=== PATIENT | female | born 1955 | race Caucasian/White ===

== ENCOUNTER → 2016-07-05 | Outpatient (CLI) | payer BC ==
--- NOTE | 2016-07-05 10:04 | Diagnostic Imaging Report ---
PROCEDURE: US Gallbladder. TECHNIQUE: Multiple real-time grayscale images were obtained over the right upper quadrant in various projections. INDICATION: Nausea and vomiting. Abdominal pain. FINDINGS: The visualized portions of the pancreas appear unremarkable. The liver is fairly homogeneous with no focal lesion. Hepatopetal flow in the portal vein is seen. The gallbladder demonstrates no stones or wall thickening. The sonographic Carrizales's sign is reportedly negative. The right kidney is 11.4 cm in length with no hydronephrosis or focal lesion. The CBD is 4 mm in caliber. No fluid collection in the upper right abdomen is seen. IMPRESSION: Unremarkable exam. Dictated by: Dictated on workstation # [id number]
== END ==
LOC: RAD 08:24
PROVIDERS: ATTEND Nurse Practitioner Family
DX: R10.84 Generalized abdominal pain (principal); R11.10 Vomiting, unspecified
CPT/HCPCS: 76705

== ENCOUNTER → 2016-07-27 | Outpatient (CLI) | payer BC ==
--- NOTE | 2016-07-27 16:29 | Diagnostic Imaging Report ---
PROCEDURE: MRI lumbar spine. TECHNIQUE: Multiplanar, multisequence MRI of the lumbar spine was performed without contrast. INDICATION: Back pain. FINDINGS: There is a transitional lumbosacral junction with prominent transverse processes of L5. There is minimal spondylolisthesis of L4 over L5. The study does not evaluate well for possible pars defects. The vertebral body heights are preserved. There is disc desiccation at lower lumbar spine levels with mild disc height loss at L3/L4 and L4/L5. The cauda equina and conus medullaris appear grossly unremarkable. The marrow signal is fairly homogeneous with no focal lesion seen. The conus terminates at L1 level. T11/T12: There is a mild disc bulge with no significant spinal canal stenosis. No foraminal narrowing. T12/L1: There is minimal disc bulge. No spinal canal or foraminal stenosis. L1/L2: No disc herniation. There is mild facet hypertrophy. No spinal canal or foraminal stenosis. L2/L3: There is a minimal disc bulge and mild facet hypertrophy. No central canal or lateral recess stenosis. No foraminal narrowing. L3/L4: There is a mild disc bulge and moderate facet arthropathy. No central canal stenosis. There is only mild lateral recess stenosis on the right. Left lateral recess is patent. The foramina demonstrate no significant stenosis. L4/L5: There is grade 1 spondylolisthesis. There is moderate to severe facet arthropathy. No central canal stenosis. The lateral recess on the right side demonstrates mild to moderate narrowing and on the left there is mild lateral recess narrowing. The foramina demonstrate mild to moderate narrowing on the right and mild narrowing on the left. L5/S1: There is no disc herniation and no spinal canal stenosis. No foraminal narrowing. IMPRESSION: 1. There is transitional lumbosacral junction with partially sacralized L5 transverse processes seen. 2. Minimal spondylolisthesis of L4 over L5. There are generally mild lower lumbar spine facet and disc degenerative changes. There is mild to moderate right lateral recess stenosis at L4/L5. Other findings as above. Dictated by: Dictated on workstation # [id number]
--- NOTE | 2016-07-27 16:48 | Diagnostic Imaging Report ---
PROCEDURE: MR imaging cervical spine without contrast. TECHNIQUE: Multiplanar, multisequence MR imaging of the cervical spine was performed without contrast. INDICATION: Cervical radiculopathy. FINDINGS: There is straightening of the cervical lordosis. The vertebral body heights are preserved. There is disc desiccation at all levels with mild disc height loss at the C4-C5, C5-C6, and C6-C7 levels. There is a marrow signal abnormality along the superior endplate of C4 probably related to a Schmorl's node. Indeterminate 1 cm T2 hyperintense lesion is seen within T1 vertebral body with minimal T1 hyperintensity suggested, located within the right side of this vertebral body probably related to an atypical hemangioma. There are perineural cysts noted about 8 mm in size seen on the right side involving C7-T1 and T2-T3 neural foramina and on the left side involving the T1-T2 and T2-T3 foramina. Smaller perineural cysts are seen in the right neural foramen along the upper thoracic spine. The sagittal images demonstrate evidence of mild disc herniations in the upper thoracic spine slightly prominent at the T2-T3 level with mild spinal canal stenosis suggested reducing the AP dimension of the canal to 9.6 mm and eccentric to the left. No cord compression is suggested, however. The foramen magnum and upper cervical canal are widely patent. The spinal cord has normal caliber and signal. C2-C3: No disc herniation, no spinal canal or foraminal stenosis. C3-C4: No disc herniation, no spinal canal or foraminal stenosis. C4-C5: There is a disc spur complex associated with mild spinal canal stenosis reducing the AP dimension of the canal to 9.6 mm. No cord compression. The foramina demonstrate moderate stenosis on the left and mild stenosis on the right resulting from uncovertebral and facet hypertrophy more prominent on the left. C5-C6: There is a prominent disc spur complex associated with cwjy-yd-fgvtxwts canal stenosis reducing the AP dimension of the spinal canal to 8.1 mm with minimal impression upon the anterior margin of the spinal cord. There is still CSF seen along the posterior margin of the cord. No cord signal abnormality. The foramina demonstrate bilateral moderate stenosis. C6-C7: There is no significant disc herniation. There is bilateral mild foraminal stenosis. C7-T1: No disc herniation and no spinal canal stenosis seen. IMPRESSION: 1. Disc degenerative changes most prominent in the [id number] cervical spine and in the upper thoracic vertebra. 2. There are multiple prominent perineural cysts in the foramina around the cervicothoracic junction levels as described. 3. There is moderate spinal canal stenosis at the C5-C6 level with minimal impression upon the anterior margin of the spinal cord. No cord signal abnormality. 4. There is foraminal stenosis most prominent on the left side at C4-C5 and bilaterally at the C5-C6 levels. Dictated by: Dictated on workstation # [id number]
== END ==
LOC: RAD 14:29
PROVIDERS: ATTEND Orthopaedic Surgery Orthopaedic Surgery of the Spine
DX: M43.17 Spondylolisthesis, lumbosacral region (principal); M54.5 Low back pain
CPT/HCPCS: 72141; 72148

== ENCOUNTER 2016-10-17 10:30 | Outpatient (RCR) | payer BC | END 2016-10-17 12:16 | disposition home or self-care (01) | PROVIDERS: ATTEND Orthopaedic Surgery Orthopaedic Surgery of the Spine | DX: M48.02 Spinal stenosis, cervical region (principal) ==

== ENCOUNTER → 2018-05-13 | Outpatient (CLI) | payer SELFPAY ==
--- NOTE | 2018-05-13 09:29 | Diagnostic Imaging Report ---
PROCEDURE: US Gallbladder. TECHNIQUE: Multiple real-time grayscale images were obtained over the right upper quadrant in various projections. INDICATION: Epigastric pain. Liver measures 15 cm in length. No discrete liver mass is identified. The portal vein is patent and shows normal direction of flow. Gallbladder is without stones or sludge. No wall thickening or biliary duct dilatation is seen. Pancreas is unremarkable. Right kidney is unremarkable. There is no ascites. IMPRESSION: Unremarkable gallbladder ultrasound. Dictated by: Dictated on workstation # [id number]
== END ==
LOC: RAD 07:32
PROVIDERS: ATTEND Nurse Practitioner Family
DX: K30 Functional dyspepsia (principal)
CPT/HCPCS: 76705

== ENCOUNTER → 2018-05-23 | Outpatient (CLI) | payer SELFPAY ==
[~2018-05-23] MED LIST: CATHETER FLUSH 10 ML SYR IV PRN
--- NOTE | 2018-05-23 19:25 | Diagnostic Imaging Report ---
INDICATION: Epigastric pain. TECHNIQUE: Acquisitions were acquired over the abdomen after the administration of 5.41 mCi of technetium-99m Choletec. Ejection fraction was calculated after the patient consumed an 8 ounce can of Ensure. FINDINGS: There is homogeneous uptake of isotope throughout the liver. There is significant accumulation within the gallbladder by 45 minutes. There is free flow of activity in the small bowel. The ejection fraction is 46%. IMPRESSION: Normal hepatobiliary scan and ejection fraction. Dictated by: Dictated on workstation # [id number]
== END ==
LOC: CARD 11:26
PROVIDERS: ATTEND Internal Medicine
DX: R10.13 Epigastric pain (principal)
CPT/HCPCS: 78227

== ENCOUNTER → 2018-08-01 | Outpatient (CLI) | payer SELFPAY ==
--- NOTE | 2018-08-01 14:40 | Diagnostic Imaging Report ---
PROCEDURE: CT abdomen and pelvis without contrast. TECHNIQUE: Multiple contiguous axial images were obtained through the abdomen and pelvis without the use of intravenous contrast. Auto Exposure Controls were utilized during the CT exam to meet ALARA standards for radiation dose reduction. INDICATION: Elevated liver and pancreatic enzymes, pain. FINDINGS: There is no peripancreatic edema or acute fluid collection. There was no pseudocyst. The gallbladder surgically absent. There was no pathological dilatation of the biliary ducts. The unobstructed urinary tracts appeared unremarkable. The appendix normal. There is no ascites, abscess, hematoma or other fluid collection. No pneumatosis or free gas. No focal inflammatory changes. IMPRESSION: Pancreas and liver appeared unremarkable. No acute fluid collection, ascites, obstructive phenomena or acute abnormalities identified. Dictated by: Dictated on workstation # [id number]
== END ==
LOC: RAD 14:04
PROVIDERS: ATTEND Nurse Practitioner Family
DX: R10.9 Unspecified abdominal pain (principal); R74.8 Abnormal levels of other serum enzymes; Z90.49 Acquired absence of other specified parts of digestive tract
CPT/HCPCS: 74176

== ENCOUNTER 2018-08-12 05:38 | Outpatient (CLI) | payer OTHER ==
[~2018-08-12] VITALS: Ht 162.6 cm; Wt 81.6 kg
[2018-08-12] MEDS ORDERED: PANT40TA2 PO (11:25)
[2018-08-12] MEDS ORDERED: HORMONE REPLACEMENT PO (11:25)
[2018-08-12] MEDS ORDERED: FAMO40TA72 PO (11:25)
== END 2018-08-12 11:32 | disposition home or self-care (01) ==
LOC: PREOP 05:38
PROVIDERS: ATTEND Internal Medicine
DX: Z01.818 Encounter for other preprocedural examination (principal)

== ENCOUNTER 2018-08-16 08:20 | Day surgery (SDC) | payer SELFPAY ==
--- NOTE | 2018-08-08 17:22 | HISTORY AND PHYSICAL ---
DATE OF SERVICE: 08/16/2018 PANENDOSCOPY H AND P The patient is a 62-year-old white female referred for panendoscopy by Dr. Seema Sullivan. She reports about 6-week history of increasing epigastric pain. She had some mild associated nausea, but denied dysphagia. She had noted no evidence or bright red blood per rectum or melena, but stool for occult blood is reportedly positive. She has no known past history of peptic ulcer disease or inflammatory bowel disease. She believes she had a colonoscopy a little over 5 years ago, at which time she was not aware of any abnormalities. It was not done in our institution. She denies waking up with any nocturnal symptoms. Denies sore throat or cough. Workup included a CT scan of the abdomen on the 08/01/2018, that was unremarkable and in May she underwent HIDA scan with CCK that revealed no abnormalities and an ejection fraction of the gallbladder 46%. FAMILY HISTORY: Mother is living at age of 86 with a history of cervical cancer. Father is living at the age of 90, blind secondary to macular degeneration with no known history of GI tract malignancy. PHYSICAL EXAMINATION: GENERAL: Reveals a pleasant overweight white female who did not appear to be in acute distress. HEENT: Unremarkable. Sclerae nonicteric. CHEST: Clear. CARDIOVASCULAR: Reveals regular rate and rhythm without murmur, S3 or S4. NECK: She has a Mallampati class 3 oropharyngeal configuration. ABDOMEN: Soft, supple. Epigastric pain to palpation is noted without rebound or guarding. No mass or organomegaly is noted. Bowel sounds are positive. No bruits are appreciated. ASSESSMENT: For further evaluation of epigastric pain with occult positive blood in the stool. The patient is being set up for panendoscopy on 08/16/2018. Prep instructions with Suprep kit were given and questions were answered. I thank you for the referral of this pleasant lady. Job ID: [id number] DocumentID: [id number] Dictated Date: 08/08/2018 16:58:06 Entry Level Finance Date: 08/08/2018 17:21:43 Dictated By: MARCO CURRIE MD
[~2018-08-16] VITALS: Ht 162.6 cm; Wt 81.6 kg
[~2018-08-16 08:20] MED LIST changes: -CATHETER FLUSH 10 ML SYR IV PRN; +FAMO40TA72 PO; +HORMONE REPLACEMENT PO; +PANT40TA2 PO
[2018-08-16] MEDS ORDERED: D5 LR IV SOLUTION 1,000 ML IV ONE (08:31)
[2018-08-16 08:50] VITALS: BP 138/80
[2018-08-16] MEDS ORDERED: D5 LR IV SOLUTION 1,000 ML IV STA (09:03)
--- NOTE | 2018-08-16 09:10 | Pre-Op Note & Conscious Sedat ---
Pre-Operative Progress Note H&P Reviewed The H&P was reviewed, patient examined and no changes noted. Date H&P Reviewed: Aug 16, 2018 Time H&P Reviewed: 09:10 Conscious Sedation Pre-Proced ASA Score 2 For ASA 3 and 4: Consider anesthesia and medical clearance. Also, for patients with a history of failed moderate sedation consider anesthesia. Airway Lungs Heart ASA score ASA 1: a normal healthy patient ASA 2: a patient with a mild systemic disease (mid diabetes, controlled hypertension, obesity ASA 3: a patient with a severe systemic disease that limits activity (angina, COPD, prior Myocardial infarction) ASA 4: a patient with an incapacitating disease that is a constant threat to life (CHF, renal failure) ASA 5: a moribund patient not expected to survive 24 hrs. (ruptured aneurysm) ASA 6: a declared brain- patient whose organs are being harvested. For emergent operations, add the letter E after the classification Mallampati Classification Grade 3 Sedation Plan Analgesia, Amnesia, Plan communicated to team members, Discussed options with patient/fam, Discussed risks with patient/fam The patient is an appropriate candidate to undergo the planned procedure, sedation, and anesthesia. The patient immediately re-assessed prior to indication. MARCO CURRIE MD Aug 16, 2018 09:10
[2018-08-16] MEDS ORDERED: HURRICAINE EXT TUBE (BENZOCAINE) XX PRN (09:15)
[2018-08-16] MEDS ORDERED: fentaNYL INJECTION 100 MCG/2 ML AMP IVP ONE (09:15)
[2018-08-16] MEDS ORDERED: LIDOCAINE JELLY 2% 6 ML SYRINGE MM PRN (09:15)
[2018-08-16] MEDS ORDERED: MIDAZOLAM 2 MG/2 ML (VERSED) VIAL IVP ONE (09:15)
[2018-08-16] MEDS ORDERED: HURRICAINE EXT TUBE (BENZOCAINE) ONE (09:32)
[2018-08-16] MEDS ORDERED: PROPOFOL INJECTION 50 ML IV ONE (09:45)
[2018-08-16] MEDS ORDERED: MIDAZOLAM 2 MG/2 ML (VERSED) VIAL ONE (09:46)
[2018-08-16 10:45] VITALS: BP 116/71
[2018-08-16] MEDS ORDERED: ONDANSETRON 4 MG/2 ML (SDV) Z0FRAN ONE (10:49)
[2018-08-16] MEDS ORDERED: ONDANSETRON 4 MG/2 ML (SDV) Z0FRAN IVP ONE (11:15)
[2018-08-16 11:40] VITALS: BP 111/72
[2018-08-16 11:44] VITALS: BP 111/72
--- NOTE | 2018-08-16 17:00 | OPERATIVE REPORT ---
DATE OF SERVICE: PANENDOSCOPY SUMMARY INDICATION FOR THE PROCEDURE: Epigastric pain, occult positive blood in the stool. The patient was placed in the left lateral decubitus position. Prior to undergoing colonoscopy, digital rectal evaluation was performed. Anal sphincter tone was normal and the perianal reflex was intact. The was inserted into the rectum under direct visualization and advanced to the cecum. The cecum was identified by identification of the ileocecal valve and cecal strap. Photographic documentation was obtained. Careful inspection was made as the colonoscope was withdrawn. Quality of prep was good. FINDINGS: There was no evidence for internal or external hemorrhoids and the rectum was unremarkable. Mild to moderate number of small to medium size diverticulum were noted with no evidence for diverticulitis. No other sigmoid colonic abnormalities were appreciated. The descending colon, splenic flexure, transverse colon and hepatic flexure were unremarkable. Present in the proximal ascending colon was a diminutive 2 mm sessile hyperplastic polyp. It was biopsied and ablated with a hot forceps. The remainder of the ascending colon and cecum was unremarkable. ASSESSMENT: 1. Mild to moderate diverticular disease confined to the sigmoid colon was present without evidence for diverticulitis. 2. One diminutive polyp that did not have adenomatous features was biopsied and ablated, noted in the proximal ascending colon. No potential colonic bleeding sites were identified, so we did proceed with EGD due to epigastric pain and occult positive blood. The endoscope was inserted into the oral cavity and under direct visualization, the esophagus was intubated. The endoscope was passed down the esophagus through the stomach and second portion of the duodenum. A careful inspection was made as the endoscope was withdrawn. The patient tolerated the procedure well. She did have some post-procedure nausea that required Zofran. Discharged with stable vital signs. The posterior pharynx, arytenoid aperture and true and false vocal folds as well as epiglottis were unremarkable. The proximal, mid and distal esophagus were unremarkable. The Z line was proximally placed at 36 cm secondary to a moderate size hiatal hernia. There was no evidence for erosive esophagitis with an unremarkable appearing gastroesophageal junction. Several small fundal appearing polyps were noted in the fundus of the stomach. The cardia, fundus, antrum of the stomach were unremarkable as was the pylorus, the pyloric channel, the duodenal bulb and second portion of the duodenum with normal appearing villous architecture. ASSESSMENT: Moderate size hiatal hernia is present without evidence for erosive esophagitis. Several small benign fundal polyps were noted with an otherwise unremarkable examination. No potential bleeding sites identified on today's panendoscopy. The patient was reassured by today's findings. I thank you for the referral of this pleasant lady. Job ID: [id number] DocumentID: [id number] Dictated Date: 08/16/2018 11:00:45 Medical Affairs Leader Date: 08/16/2018 16:59:24 Dictated By: MARCO CURRIE MD
== END 2018-08-16 11:45 | disposition home or self-care (01) ==
LOC: ENDO 08:20
PROVIDERS: ATTEND Internal Medicine
DX: K63.5 Polyp of colon (principal); K57.30 Diverticulosis of large intestine without perforation or abscess without bleeding; K44.9 Diaphragmatic hernia without obstruction or gangrene; K31.7 Polyp of stomach and duodenum; K21.9 Gastro-esophageal reflux disease without esophagitis; Z80.49 Family history of malignant neoplasm of other genital organs

== ENCOUNTER → 2019-03-21 | Outpatient (CLI) | payer MEDICARE ==
--- NOTE | 2019-03-25 10:31 | Diagnostic Imaging Report ---
INDICATION: Screening. TECHNIQUE: The current study was also evaluated with a Computer Aided Detection (CAD) system. 3D Tomographic imaging was also performed. COMPARISON: 09/15/2015 and 07/24/2013. FINDINGS: There are scattered fibroglandular densities in the breasts bilaterally. There are benign type calcifications. There is no new dominant mass, spiculated lesion, or suspicious calcification identified. The skin, nipples, and axillae are unremarkable. IMPRESSION: Benign findings. ACR BI-RADS Category 2: Benign findings. Result letter will be mailed to the patient. Note: At least 10% of breast cancer is not imaged by mammography. Dictated by: Dictated on workstation # [id number]
== END ==
LOC: RAD 10:36
PROVIDERS: ATTEND Nurse Practitioner Family
DX: Z12.31 Encounter for screening mammogram for malignant neoplasm of breast (principal)
CPT/HCPCS: 77067

== ENCOUNTER → 2019-09-15 | Outpatient (CLI) | payer MEDICARE ==
--- NOTE | 2019-09-15 12:07 | Diagnostic Imaging Report ---
INDICATION: Left hip pain COMPARISON: None. FINDINGS: 2 views of the left hip were obtained and show no fractures, dislocations, or other acute bony abnormalities. Joint spaces are well maintained throughout. The soft tissues appear unremarkable. No radiopaque foreign bodies are identified. IMPRESSION: Unremarkable radiographic exam of the left hip. Dictated by: Dictated on workstation # [id number]
== END ==
LOC: RAD 11:44
PROVIDERS: ATTEND Nurse Practitioner Family
DX: M25.552 Pain in left hip (principal)
CPT/HCPCS: 73502

== ENCOUNTER → 2019-09-22 | Outpatient (CLI) | payer MEDICARE, OTHER ==
[~2019-09-22] VITALS: Ht 162 cm; Wt 80.0 kg
[~2019-09-22] MED LIST changes: +CATHETER FLUSH 10 ML SYR IV PRN; +REGADENOSON 0.4 MG/5 ML SYR (LEXISCAN) IV ONE
[2019-09-22 08:19] VITALS: BP 143/94
[2019-09-22 08:21] VITALS: BP 152/77
--- NOTE | 2019-09-22 10:51 | STRESS TEST ---
DATE OF SERVICE: 09/22/2019 RESTING AND POST REGADENOSON TECHNETIUM-99M TETROFOSMIN SPECT CT IMAGING ORDERING PHYSICIAN: NEEMA Palacios PRIMARY PHYSICIAN: NEEMA Palacios CLINICAL DIAGNOSIS: Chest pain. Baseline images were carried out after injection of 10.21 mCi of technetium-99m Tetrofosmin. This was followed by 0.4 mg regadenoson and 30.3 mCi of technetium-99m Tetrofosmin for stress imaging. The electrocardiogram showed sinus rhythm at baseline. The electrocardiogram did not change significantly with the regadenoson infusion. The patient tolerated the procedure well. This study was carried out under 's supervision and the electrocardiographic part of the study is reported separately by him. Review of images at rest and following stress does not indicate significant perfusion defects consistent with myocardial ischemia or infarction. Gated images show normal global left ventricular systolic function with normal regional wall motion. Left ventricular ejection fraction is calculated to be 58%. Left ventricular end diastolic volume is 41 mL. TID is absent (1.07). CONCLUSIONS: 1. No evidence of any significant myocardial ischemia or infarction on this study. 2. Normal regional wall motion. 3. Normal global left ventricular systolic function with a calculated ejection fraction 58%. Job ID: [id number] DocumentID: [id number] Dictated Date: 09/22/2019 09:43:48 Distribution Clerk Date: 09/22/2019 10:50:40 Dictated By: MABEL MADDEN MD, MA, FACP, FACC,
== END ==
LOC: CARD 06:41
PROVIDERS: ATTEND Nurse Practitioner Family
DX: R07.89 Other chest pain (principal); R03.0 Elevated blood-pressure reading, without diagnosis of hypertension
CPT/HCPCS: 78452; 93017; A9502

== ENCOUNTER 2019-12-24 09:09 | Outpatient (RCR) | payer MEDICARE, OTHER ==
[~2019-12-24 09:09] MED LIST changes: -CATHETER FLUSH 10 ML SYR IV PRN; -REGADENOSON 0.4 MG/5 ML SYR (LEXISCAN) IV ONE
== END 2020-01-05 | disposition home or self-care (01) ==
PROVIDERS: ATTEND Nurse Practitioner Family
DX: M70.72 Other bursitis of hip, left hip (principal); K21.9 Gastro-esophageal reflux disease without esophagitis; M54.5 Low back pain; M54.2 Cervicalgia; Z91.09 Other allergy status, other than to drugs and biological substances

== ENCOUNTER 2020-02-24 09:52 | Outpatient (RCR) | payer MEDICARE, OTHER | END 2020-02-24 12:00 | disposition home or self-care (01) | PROVIDERS: ATTEND Nurse Practitioner Family | DX: M70.72 Other bursitis of hip, left hip (principal); K21.9 Gastro-esophageal reflux disease without esophagitis; M54.5 Low back pain; M54.2 Cervicalgia; Z91.09 Other allergy status, other than to drugs and biological substances ==

== ENCOUNTER → 2020-08-02 | Outpatient (CLI) | payer MEDICARE, OTHER ==
--- NOTE | 2020-08-02 10:36 | Diagnostic Imaging Report ---
INDICATION: Routine screening. COMPARISON: 03/21/2019 and 09/15/2015. TECHNIQUE: 2D and 3D bilateral screening mammography was performed with CAD. FINDINGS: Both breasts remain heterogeneously dense, limiting the sensitivity of mammography. There are scattered benign calcifications. No mass or malignant appearing microcalcifications are seen. The axillae are unremarkable. IMPRESSION: No mammographic features suspicious for malignancy are identified. ACR BI-RADS Category 2: Benign findings. Result letter will be mailed to the patient. Note: At least 10% of breast cancer is not imaged by mammography. Dictated by: Dictated on workstation # [id number]
== END ==
LOC: RAD 08:00
PROVIDERS: ATTEND Internal Medicine
DX: Z12.31 Encounter for screening mammogram for malignant neoplasm of breast (principal)
CPT/HCPCS: 77063; 77067

== ENCOUNTER → 2021-02-14 | Outpatient (CLI) | payer MEDICARE, OTHER ==
[~2021-02-14] VITALS: Ht 64 cm; Wt 79.1 kg
[~2021-02-14] MED LIST changes: +ACETAMINOPHEN 500 MG TAB (TYLENOL) PO PRN; +EPINEPHrine INJECTION 1 MG/ML AMP IM PRN; +ONDANSETRON 4 MG/2 ML (SDV) Z0FRAN IV PRN; +SOTROVIMAB 500 MG/NS 100 ML IVPB IV ONE; +diphenhydrAMINE 50 MG/ML INJ (BENADRYL) IV PRN
[2021-02-14 12:42] VITALS: BP 150/80
[2021-02-14 13:42] VITALS: BP 146/95
[2021-02-14 13:45] VITALS: BP 146/74
== END ==
LOC: INFUSION 12:37
PROVIDERS: ATTEND Family Medicine
DX: U07.1 COVID-19 (principal)

== ENCOUNTER → 2021-03-07 | Outpatient (CLI) | payer MEDICARE, OTHER ==
[~2021-03-07] MED LIST changes: -ACETAMINOPHEN 500 MG TAB (TYLENOL) PO PRN; -EPINEPHrine INJECTION 1 MG/ML AMP IM PRN; -ONDANSETRON 4 MG/2 ML (SDV) Z0FRAN IV PRN; -SOTROVIMAB 500 MG/NS 100 ML IVPB IV ONE; -diphenhydrAMINE 50 MG/ML INJ (BENADRYL) IV PRN
[2021-03-07 15:52] LABS: BASOPHILS # (AUTO) 0.1 10^3/uL (0.0-0.1); BASOPHILS % (AUTO) 1 % (0-10); EOSINOPHILS # (AUTO) 0.7 10^3/uL (0.0-0.3); EOSINOPHILS % (AUTO) 7 % (0-10); HEMATOCRIT 42 % (35-52); HEMOGLOBIN 13.9 g/dL (11.5-16.0); LYMPHOCYTES # (AUTO) 2.1 10^3/uL (1.0-4.0); LYMPHOCYTES % (AUTO) 22 % (12-44); MEAN CORPUSCULAR HEMOGLOBIN 31 pg (25-34); MEAN CORPUSCULAR HGB CONC 33 g/dL (32-36); MEAN CORPUSCULAR VOLUME 94 fL (80-99); MEAN PLATELET VOLUME 9.7 fL (9.0-12.2); MONOCYTES # (AUTO) 0.6 10^3/uL (0.0-1.0); MONOCYTES % (AUTO) 6 % (0-12); NEUTROPHILS # (AUTO) 6.4 10^3/uL (1.8-7.8); NEUTROPHILS % (AUTO) 65 % (42-75); PLATELET COUNT 369 10^3/uL (130-400); WHITE BLOOD COUNT 9.9 10^3/uL (4.3-11.0)
--- NOTE | 2021-03-07 20:56 | Diagnostic Imaging Report ---
INDICATION: Respiratory infection. COVID. FINDINGS: There is no focal infiltrate apparent. The lungs are clear. No failure, effusion or pneumothorax. No free air beneath the diaphragms. IMPRESSION: Unremarkable 2 view chest. Dictated by: Dictated on workstation # [id number]
== END ==
LOC: RAD 15:29
PROVIDERS: ATTEND Nurse Practitioner Family
DX: U07.1 COVID-19 (principal)
CPT/HCPCS: 36415; 71046; 85025; 85379

== ENCOUNTER 2021-06-09 12:52 | Outpatient (RCR) | payer MEDICARE, OTHER | END 2021-06-11 | PROVIDERS: ATTEND Nurse Practitioner Family | DX: M99.03 Segmental and somatic dysfunction of lumbar region (principal); M99.04 Segmental and somatic dysfunction of sacral region; K21.9 Gastro-esophageal reflux disease without esophagitis ==

== ENCOUNTER 2021-07-06 14:54 | Outpatient (RCR) | payer MEDICARE, OTHER | END 2021-07-12 | disposition home or self-care (01) | PROVIDERS: ATTEND Nurse Practitioner Family | DX: M54.50 Low back pain, unspecified (principal); Z98.890 Other specified postprocedural states ==

== ENCOUNTER 2021-08-08 10:20 | Outpatient (RCR) | payer MEDICARE, OTHER | END 2021-08-11 | disposition home or self-care (01) | PROVIDERS: ATTEND Nurse Practitioner Family | DX: M54.50 Low back pain, unspecified (principal); Z98.890 Other specified postprocedural states ==

== ENCOUNTER → 2022-01-11 | Outpatient (CLI) | payer MEDICARE, OTHER ==
--- NOTE | 2022-01-12 09:07 | Diagnostic Imaging Report ---
Indication: Routine screening. Comparison is made with prior mammograms from 08/02/2020 and 03/21/2019. 2-D and 3-D bilateral screening mammography was performed with CAD. Both breasts are heterogeneously dense, limiting the sensitivity of mammography. There are scattered benign calcifications in both breasts. No spiculated mass or malignant-appearing microcalcifications are seen. Axillae are unremarkable. IMPRESSION: BI-RADS Category 2 No mammographic features suspicious for malignancy are identified. ACR BI-RADS Category 2: Benign findings. Result letter will be mailed to the patient. Note: At least 10% of breast cancer is not imaged by mammography. Dictated by: Dictated on workstation # [id number]
== END ==
LOC: RAD 15:23
PROVIDERS: ATTEND Nurse Practitioner Family
DX: Z12.31 Encounter for screening mammogram for malignant neoplasm of breast (principal)
CPT/HCPCS: 77063; 77067

== ENCOUNTER 2022-02-10 08:00 | Outpatient (RCR) | payer MEDICARE, OTHER | END 2022-02-11 | disposition home or self-care (01) | PROVIDERS: ATTEND Anesthesiology Pain Medicine | DX: M54.2 Cervicalgia (principal); M62.838 Other muscle spasm ==

== ENCOUNTER 2022-02-28 13:36 | Outpatient (RCR) | payer MEDICARE, OTHER | END 2022-03-14 | disposition home or self-care (01) | PROVIDERS: ATTEND Anesthesiology Pain Medicine | DX: M54.2 Cervicalgia (principal); M62.838 Other muscle spasm ==

== ENCOUNTER 2023-01-10 03:38 | Observation (INO) | payer MEDICARE, OTHER ==
[~2023-01-10] VITALS: Ht 162.6 cm; Wt 79.7 kg
--- NOTE | 2023-01-10 03:52 | ED Cardiac General ---
History of Present Illness General Stated Complaint: VOMITING/RAPID HEART RATE Source: patient Exam Limitations: no limitations History of Present Illness Date Seen by Provider: Jan 10, 2023 Time Seen by Provider: 03:52 Initial Comments Patient is a 67-year-old female who presents to the emergency room with a chief complaint of sudden onset racing heart, nauseated dry heaving. She woke up in the middle of the night after having terrible dreams, nauseated and feeling po jigar, turned over in the bed on her left side and all of a sudden felt the pounding in her heart. She had 1 episode of known A-fib around a surgery in 2014 while she was in recovery. By the time she came out of recovery the A-fib had resolved. She takes no medications for high blood pressure or heart problems. She tried a new sleep aid last night prior to bed but other than that does not use excessive amounts of caffeine, has not been on any cold medications/decongestants. She denies recent fevers, chills, cough. No diarrhea, black or bloody stools or urinary discomfort. No abnormal swelling in her legs. She is not on blood thinners. Currently states her nausea is improved. She never had chest pain. She does not feel short of breath. Timing/Duration: 1 hour Severity: moderate Activities at Onset: sleep NTG SL WEIGHT AND TEST BAR CLERK: No ASA po WEIGHT AND TEST BAR CLERK: No Associated Systoms: Nausea/Vomiting, Other (Palpitations) Allergies and Home Medications Allergies Coded Allergies: No Known Drug Allergies (Unverified , 08/12/18) Patient Home Medication List Home Medication List Reviewed: Yes Famotidine (Pepcid) 40 Mg Tablet, 40 MG PO HS, (Reported) Entered as Reported by: DAVID GARNICA on 08/12/181124 Pantoprazole Sodium (Protonix) 40 Mg Tablet.dr, 40 MG PO DAILY, (Reported) Entered as Reported by: DAVID GARNICA on 08/12/18 112 [Hormone Replacement] , 1 LOZENGE PO DAILY, (Reported) Entered as Reported by: DAVID GARNICA on 08/12/18 112 Review of Systems Review of Systems Constitutional: see HPI, malaise EENTM: No Symptoms Reported Respiratory: No Symptoms Reported Cardiovascular: Irregular Heart Rate, Palpitations Gastrointestinal: Nausea, Vomiting Genitourinary: No Symptoms Reported Musculoskeletal: no symptoms reported Skin: no symptoms reported Past Jdqrbxc-Gqfggd-Wljvof Hx Seasonal Allergies Seasonal Allergies: Yes Past Medical History Surgeries: Yes (LEG FX X2) Gallbladder, Hysterectomy Respiratory: No Cardiac: No Neurological: No 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 0.0oz. 81.585503ps; 30.48 BMI Method: General Appearance: No Apparent Distress, WD/WN HEENT: PERRL/EOMI, Other (Very dry oral mucosa) Respiratory: Lungs Clear, Normal Breath Sounds, No Accessory Muscle Use, No Respiratory Distress Cardiovascular: Normal Peripheral Pulses, Irregularly Irregular, Tachycardia Gastrointestinal: Non Tender, Soft Extremity: No Pedal Edema Neurologic/Psychiatric: Alert, Oriented x3, No Motor/Sensory Deficits, Normal Mood/Affect Skin: Normal Color, Warm/Dry Progress/Results/Core Measures Results/Orders Lab Results Laboratory Tests Test 01/10/23 04:00 Range/Units White Blood Count 15.6 H 4.3-11.0 10^3/uL Red Blood Count 4.82 3.80-5.11 10^6/uL Hemoglobin 15.5 11.5-16.0 g/dL Hematocrit 45 35-52 % Mean Corpuscular Volume 93 80-99 fL Mean Corpuscular Hemoglobin 32 25-34 pg Mean Corpuscular Hemoglobin Concent 35 32-36 g/dL Red Cell Distribution Width 11.8 10.0-14.5 % Platelet Count 338 130-400 10^3/uL Mean Platelet Volume 10.1 9.0-12.2 fL Immature Granulocyte % (Auto) 0 % Neutrophils (%) (Auto) 86 H 42-75 % Lymphocytes (%) (Auto) 7 L 12-44 % Monocytes (%) (Auto) 5 0-12 % Eosinophils (%) (Auto) 2 0-10 % Basophils (%) (Auto) 0 0-10 % Neutrophils # (Auto) 13.3 H 1.8-7.8 10^3/uL Lymphocytes # (Auto) 1.1 1.0-4.0 10^3/uL Monocytes # (Auto) 0.8 0.0-1.0 10^3/uL Eosinophils # (Auto) 0.3 0.0-0.3 10^3/uL Basophils # (Auto) 0.1 0.0-0.1 10^3/uL Immature Granulocyte # (Auto) 0.1 0.0-0.1 10^3/uL Neutrophils % (Manual) 83 % Lymphocytes % (Manual) 10 % Monocytes % (Manual) 7 % Blood Morphology Comment NORMAL Sodium Level 141 135-145 MMOL/L Potassium Level 3.7 3.6-5.0 MMOL/L Chloride Level 109 H 98-107 MMOL/L Carbon Dioxide Level 20 L 21-32 MMOL/L Anion Gap 12 5-14 MMOL/L Blood Urea Nitrogen 14 7-18 MG/DL Creatinine 0.72 0.60-1.30 MG/DL Estimat Glomerular Filtration Rate 90 BUN/Creatinine Ratio 19 Glucose Level 121 H 70-105 MG/DL Calcium Level 9.1 8.5-10.1 MG/DL My Orders Orders - FERDINAND GARCIA MD Ekg Tracing (01/10/23 03:44) Ed Iv/Invasive Line Start (01/10/23 03:58) Cbc And Automated Diff (01/10/23 03:58) Basic Metabolic Panel (01/10/23 03:58) Chest 1 View, Ap/Pa Only (01/10/23 03:58) Ns Iv 1000 Ml (Ns Iv 1000 Ml) (01/10/23 04:00) Diltiazem Injection (Diltiazem Injection (01/10/23 04:00) Manual Differential (01/10/23 04:00) Diltiazem Drip Pre-Mix (Diltiazem Drip P (01/10/23 04:30) Apixaban Tablet (Apixaban Tablet) (01/10/23 04:30) Digoxin Tablet (Digoxin Tablet) (01/10/23 05:00) Ekg Tracing (01/10/23 05:37) Bnp Bettina (01/10/23 05:39) Medications Given in ED Current Medications Medications Dose Ordered Sig/Robinson Route Start Time Stop Time Status Last Admin Dose Admin Apixaban 5 mg ONCE ONCE PO 01/10/23 04:30 01/10/23 04:31 DC 01/10/23 04:31 5 MG Diltiazem HCl 20 mg ONCE ONCE IVP 01/10/23 04:00 01/10/23 04:01 DC 01/10/23 04:03 20 MG Vital Signs/I&O 01/10/23 01/10/23 01/10/23 01/10/23 03:45 04:03 04:32 05:34 Temp 36.8 36.4 Pulse 147 154 126 97 Resp 15 15 B/P (MAP) 143/113 (123) 123/109 104/90 111/75 Pulse Ox 94 94 O2 Delivery Room Air Room Air Progress Progress Note #1: Time: 04:25 Progress Note HR down after Cardizem bolus - from 160's to 110-124. BP 99/67; IVF running. Wi ll go ahead and start drip at 5mg/hr and administer 5mg Eliquis PO. Progress Note #2: Time: 05:37 Progress Note Patient seen and evaluated by me. Evaluation today includes history and physical exam with CBC, basic metabolic panel, EKG, single view chest x-ray. Pertinent physical exam findings well-developed well-nourished 67-year-old female currently in atrial fibrillation with rapid ventricular response in the 150s. Blood pressure in the 120s to 130s systolic. Oral mucosa is very dry. Heart irregularly irregular, tachycardic. 2+ radial pulses bilaterally lungs are clear, abdomen is soft, nontender. No focal neurologic deficits. No lower extremity edema. Differential diagnosis includes new onset A-fib Labs independently reviewed and interpreted by me. Her CBC is normal, basic metabolic panel is normal, EKG shows A-fib with RVR at 160. Single view chest x-ray shows mild cardiomegaly with positive fluid balance/increased interstitial fluid. Patient is treated with a liter of IV fluids, Cardizem bolus of 20 mg IV followed by a drip at 5 mg an hour. Patient was noted to drop her blood pressure after the bolus to the upper 80s systolic. She responded nicely to fluids and her pressure came back up to the low 100s. She remained tachycardic in the 120s to 130s. 0.5mg of oral digoxin was given. I also administered 5 mg of Eliquis p.o. Just as I was calling Dr. Briones at about 0525 for admission she cardioverted to a normal sinus rhythm in the upper 90s, currently 96 beats a minute and apparent normal sinus rhythm. Blood pressure 112/79. Oxygen saturations 91% on room air. BNP is ordered at this time. Secondary to this episode of prolonged A-fib we will go ahead and keep the bed for evaluation by Dr. Singh. Bridge orders have been written, I spoke with Dr. Briones at 05 25. Patient is agreeable with the plan of care. second EKG at 0541 - NSR at 99bpm Initial ECG Impression Date: Jan 10, 2023 Initial ECG Impression Time: 03:50 Initial ECG Rate: 160 Initial ECG Rhythm: A Fib/Flutter Initial ECG Impression: Nonspecific Changes, Atrial Fibrillation w/RVR EKG : EKG Time: 05:41 Rate: 99 Rhythm: Normal Sinus Intervals WA 164 QRS 90 QTc 407 ECG Comparisson: Changed ECG Impression: Normal Diagnostic Imaging Diagonstic Imaging: Xray Plain Films/CT/US/NM/MRI: chest Comments Single view chest x-ray independently reviewed and interpreted by me, borderline cardiomegaly, positive fluid balance, no consolidative infiltrate or effusion is noted Critical Care Note Critical Care Start Time: 03:52 Stop Time: 05:00 Total Time (minutes) 30min critical care time in the eval and management of Afib with RVR. Time includes rate management with Cardizem bolus and drip and dig administration; review and interpretation of labs/ekg and CXR; discussion with family and admitting provider. Departure Communication (Admissions) Time/Spoke to Admitting Phy: 05:[address] Briones - will admit to ICU, cardizem drip Impression Primary Impression: Atrial fibrillation with rapid ventricular response Disposition: ADMITTED INPATIENT Condition: Critical Admissions Decision to Admit Reason: Admit from ER (General) Decision to Admit/Date: Jan 10, 2023 Time/Decision to Admit Time: 04:58 Departure-Patient Inst. Referrals: LIAM ONTIVEROS DO (PCP/Family) Primary Care Physician Copy Copies To 1: LIAM ONTIVEROS DO Copies To 2: DAVID SINGH MD, KATHRYN M MD Jan 10, 2023 03:52
[2023-01-10] MEDS ORDERED: dilTIAZem INJ 25 MG/5 ML VIAL IVP ONE (04:00)
[2023-01-10] MEDS ORDERED: NS IV 1000 ML 1,000 ML IV SCH ×2 (04:00→06:15)
[2023-01-10 04:11] LABS: BASOPHILS # (AUTO) 0.1 10^3/uL (0.0-0.1); BASOPHILS % (AUTO) 0 % (0-10); EOSINOPHILS # (AUTO) 0.3 10^3/uL (0.0-0.3); EOSINOPHILS % (AUTO) 2 % (0-10); HEMATOCRIT 45 % (35-52); HEMOGLOBIN 15.5 g/dL (11.5-16.0); LYMPHOCYTES # (AUTO) 1.1 10^3/uL (1.0-4.0); LYMPHOCYTES % (AUTO) 7 % (12-44); MEAN CORPUSCULAR HEMOGLOBIN 32 pg (25-34); MEAN CORPUSCULAR HGB CONC 35 g/dL (32-36); MEAN CORPUSCULAR VOLUME 93 fL (80-99); MEAN PLATELET VOLUME 10.1 fL (9.0-12.2); MONOCYTES # (AUTO) 0.8 10^3/uL (0.0-1.0); MONOCYTES % (AUTO) 5 % (0-12); NEUTROPHILS # (AUTO) 13.3 10^3/uL (1.8-7.8); NEUTROPHILS % (AUTO) 86 % (42-75); PLATELET COUNT 338 10^3/uL (130-400); WHITE BLOOD COUNT 15.6 10^3/uL (4.3-11.0)
[2023-01-10 04:25] LABS: CALCIUM 9.1 MG/DL (8.5-10.1); CREATININE SERUM 0.72 MG/DL (0.60-1.30); POTASSIUM 3.7 MMOL/L (3.6-5.0)
[2023-01-10] MEDS ORDERED: APIXABAN 5 MG TABLET PO ONE (04:30)
[2023-01-10] MEDS ORDERED: dilTIAZem DRIP PRE-MIX 125 ML IV SCH (04:30)
[2023-01-10 04:37] LABS: LYMPHOCYTES % (MANUAL) 10 %; MONOCYTES % (MANUAL) 7 %; NEUTROPHILS % (MANUAL) 83 %
[2023-01-10 04:38] LABS: RBC MORPH NORMAL
[2023-01-10] MEDS ORDERED: DIGOXIN 0.25 MG TABLET PO SCH (05:00)
[2023-01-10 05:52] VITALS: BP 103/88
[2023-01-10] MEDS ORDERED: ONDANSETRON INJECTION 4 MG/2 ML (SDV) IV PRN (06:15)
[2023-01-10] MEDS ORDERED: dilTIAZem DRIP 125 MG/125 ML DRIP IV SCH (06:15)
--- NOTE | 2023-01-10 06:17 | Tele-ICU Consult ---
History of Present Illness History of Present Illness Date Seen by Provider: Jan 10, 2023 Time Seen by Provider: 06:12 History of Present Illness eICU Critical Care Consult 67 yo F admitted with cc of palpitations, nausea. Hx of previous a fib 2014, on no meds, no OAC, no CP IN ED was in a fib with rate 147 with BP 147/113, also Hb 15, WBC 15, plt 338, renal function ok, HCO3 21, started on Eliquis 5 mg and IV Cardizem, V rate went down to 110, BP 99/67 CXR boderline CM, congestion Allergies and Home Medications Allergies Coded Allergies: No Known Drug Allergies (Unverified , 08/12/18) Home Medications Famotidine 40 Mg Tablet, 40 MG PO HS, (Reported) Pantoprazole Sodium 40 Mg Tablet.dr, 40 MG PO DAILY, (Reported) [Hormone Replacement] , 1 LOZENGE PO DAILY, (Reported) Past Medical/Social/Family Hx Patient Social History Tobacco Use?: No Substance use?: No Alcohol Use?: No Pt stated abuse/neglect: No Immunizations Up To Date Influenza Vaccine Up-to-Date: No; Not Current First/Initial COVID19 Vaccinat: COVID VAC X2 Tetanus Booster (TDap): Unknown Current Status status: No Advance Directives: No Communicates: Verbally Primary Language: Slovenian Preferred Spoken Language: Slovenian Is interpretation needed?: No Implanted or Applied Medical D: Orthopedic hardware Review of Systems Constitutional: no symptoms reported, see HPI Focused Exam Height, Weight, BMI Height: 5'4.00" Weight: 180lbs. 0.0oz. 81.681992ql; 30.00 BMI Method: Exam Exam Patient acknowledged, consented, and participated in this virtual visit which was conducted using real time audio/video Vital Signs Date Time Temp Pulse Resp B/P (MAP) Pulse Ox O2 Delivery O2 Flow Rate FiO2 01/10/23 05:34 36.4 97 15 111/75 94 Room Air 01/10/23 04:32 126 104/90 01/10/23 04:03 154 123/109 01/10/23 03:45 36.8 147 15 143/113 (123) 94 Room Air I & O 01/10/23 07:00 Intake Total 1000 ml Balance 1000 ml Height & Weight Height: 5'4.00" Weight: 180lbs. 0.0oz. 81.986439ka; 30.00 BMI Method: General Appearance: No Apparent Distress, WD/WN HEENT: PERRL/EOMI, Other (Very dry oral mucosa) Respiratory: Lungs Clear, Normal Breath Sounds, No Accessory Muscle Use, No Respiratory Distress Cardiovascular: Regular Rate, Rhythm (Has converted to sinus, now rate 92), Normal Peripheral Pulses, Irregularly Irregular, Tachycardia Capillary Refill: Less Than 3 Seconds Gastrointestinal: normal bowel sounds, non tender, soft Extremity: No Pedal Edema Neurologic/Psychiatric: Alert, Oriented x3, No Motor/Sensory Deficits, Normal Mood/Affect Skin: Normal Color, Warm/Dry Results Lab Laboratory Tests 01/10/23 04:00 Assessment/Plan Assessment/Plan Was in a fib with RVR, now in sinus, will continue IV Cardizem, cardiology to see spoke with service provider: Critically Ill Patient Time spent with patient (mins): 20 ANGIE GONZALEZ MD Jan 10, 2023 06:17
--- NOTE | 2023-01-10 06:24 | Diagnostic Imaging Report ---
EXAMINATION: Chest 1 view HISTORY: Nausea. Chest palpitations. COMPARISON: 03/07/2021. FINDINGS: The lung volumes are normal. No focal consolidation is seen. No large pleural effusion or pneumothorax is seen. The cardiac silhouette is stable. There is mild prominence of the central pulmonary vasculature. No acute osseous abnormality is seen. IMPRESSION: 1. Mild congestion. Dictated by: Dictated on workstation # [id number]
[2023-01-10] MEDS ORDERED: FLU HIGH DOSE (65+ YOA) 240 MCG/0.7 ML 2023-24 (FLUZONE) IM ONE (07:15)
[2023-01-10] MEDS ORDERED: NS IV 500 ML 500 ML IV PRN (08:15)
[2023-01-10] MEDS ORDERED: POTASSIUM CHLORIDE 20 MEQ TABLET PO ONE (08:15)
[2023-01-10] MEDS ORDERED: RIVA20TA PO (08:57)
--- NOTE | 2023-01-10 08:57 | Consultation-Cardiology ---
HPI-Cardiology Cardiology Consultation Date of Consultation 01/10/23 Date of Admission Time Seen by Provider: 08:54 Indication: Atrial fibrillation HPI 67-year-old lady with history of paroxysmal atrial fibrillation had an episode of atrial fibrillation in 2014 and has been doing well. Woke up last night with dry heaves then she felt palpitation, she checked her Apple Watch and noted to be in atrial fibrillation with a heart rate 150. Patient came into the emergency room and she was started on Cardizem drip. She has converted to sinus rhythm. Denied any chest pain, no shortness of breath no palpitation. No syncope or near syncopal episode. No fever or chills. Home Medications & Allergies Allergies: Coded Allergies: latex (Verified Allergy, Mild, RASH,BLISTERS, 01/10/23) Home Medication List Reviewed: Yes DQH-[id number]-Yfiyxg Hx Patient Social History Marital Status: Employed/Student: employed 2nd Hand Smoke Exposure: No Recent Hopitalizations: No Alcohol Use?: No Past Medical History Discussed below Family Medical History Significant Family History: No Pertinent Family Hx Review of Systems-General Review of Systems Constitutional: no symptoms reported, see HPI EENTM: see HPI, no symptoms reported Respiratory: no symptoms reported, see HPI Cardiovascular: see HPI; No chest pain, No edema, No Hx of Intervention; palpitations; No syncope, No vascular heart diseas, No other Gastrointestinal: no symptoms reported, see HPI Genitourinary: no symptoms reported, see HPI Musculoskeletal: no symptoms reported Skin: no symptoms reported Psychiatric/Neurological: No Symptoms Reported, See HPI Reviewed Test Results Reviewed Test Results Lab Laboratory Tests Test 01/10/23 04:00 Range/Units White Blood Count 15.6 H 4.3-11.0 10^3/uL Red Blood Count 4.82 3.80-5.11 10^6/uL Hemoglobin 15.5 11.5-16.0 g/dL Hematocrit 45 35-52 % Mean Corpuscular Volume 93 80-99 fL Mean Corpuscular Hemoglobin 32 25-34 pg Mean Corpuscular Hemoglobin Concent 35 32-36 g/dL Red Cell Distribution Width 11.8 10.0-14.5 % Platelet Count 338 130-400 10^3/uL Mean Platelet Volume 10.1 9.0-12.2 fL Immature Granulocyte % (Auto) 0 % Neutrophils (%) (Auto) 86 H 42-75 % Lymphocytes (%) (Auto) 7 L 12-44 % Monocytes (%) (Auto) 5 0-12 % Eosinophils (%) (Auto) 2 0-10 % Basophils (%) (Auto) 0 0-10 % Neutrophils # (Auto) 13.3 H 1.8-7.8 10^3/uL Lymphocytes # (Auto) 1.1 1.0-4.0 10^3/uL Monocytes # (Auto) 0.8 0.0-1.0 10^3/uL Eosinophils # (Auto) 0.3 0.0-0.3 10^3/uL Basophils # (Auto) 0.1 0.0-0.1 10^3/uL Immature Granulocyte # (Auto) 0.1 0.0-0.1 10^3/uL Neutrophils % (Manual) 83 % Lymphocytes % (Manual) 10 % Monocytes % (Manual) 7 % Blood Morphology Comment NORMAL Sodium Level 141 135-145 MMOL/L Potassium Level 3.7 3.6-5.0 MMOL/L Chloride Level 109 H 98-107 MMOL/L Carbon Dioxide Level 20 L 21-32 MMOL/L Anion Gap 12 5-14 MMOL/L Blood Urea Nitrogen 14 7-18 MG/DL Creatinine 0.72 0.60-1.30 MG/DL Estimat Glomerular Filtration Rate 90 BUN/Creatinine Ratio 19 Glucose Level 121 H 70-105 MG/DL Calcium Level 9.1 8.5-10.1 MG/DL B-Type Natriuretic Peptide 29.8 <100.0 PG/ML Physical Exam Physical Exam Vital Signs Vital Signs - First Documented 01/10/23 03:45 Temp 36.8 Pulse 147 Resp 15 B/P (MAP) 143/113 (123) Pulse Ox 94 O2 Delivery Room Air Capillary Refill : Less Than 3 Seconds Height, Weight, BMI Height: 5'4.00" Weight: 180lbs. 0.0oz. 81.651965ps; 30.14 BMI Method: General Appearance: No Apparent Distress, WD/WN Eyes: Bilateral Eye Normal Inspection, Bilateral Eye PERRL, Bilateral Eye EOMI HEENT: PERRL/EOMI, Other (Very dry oral mucosa) Neck: Full Range of Motion, Normal Inspection, Non Tender, Supple, Carotid Bruit Respiratory: Lungs Clear, Normal Breath Sounds, No Accessory Muscle Use, No Respiratory Distress Cardiovascular: Regular Rate, Rhythm (Has converted to sinus, now rate 92), Normal Peripheral Pulses, Irregularly Irregular, Tachycardia Gastrointestinal: Non Tender, Soft Back: Normal Inspection, No CVA Tenderness, No Vertebral Tenderness Extremity: No Pedal Edema Neurologic/Psychiatric: Alert, Oriented x3, No Motor/Sensory Deficits, Normal Mood/Affect Skin: Normal Color, Warm/Dry Lymphatic: No Adenopathy A/P-Cardiology Admission Diagnosis Paroxysmal atrial fibrillation Palpitation Arthritis Obesity Assessment/Plan Paroxysmal atrial fibrillation with rapid ventricular response Converted to sinus rhythm on Cardizem drip I had a long discussion with the patient and explained atrial fibrillation, she has her second episode, had a known episode in 2015. I will add low-dose beta-raymond and evaluate tolerance and response We will consider stress test as an outpatient, I will evaluate 2D echo prior to her discharge [id number] score 3, starting Xarelto, monitor tolerance and response Arthritis. Using tramadol on and off, educated on limiting the use of tramadol as much as possible Family history of heart disease with father had carotid endarterectomy mother had mitral valve repair both lived to their 90s Palpitation, probably secondary to atrial fibrillation, resolved BMI 30, increased risk of sleep apnea, discussed weight loss. Clinical Quality Measures AMI/AHF: ASA po Prior to arrival: DAVID Pierre MD Jan 10, 2023 08:57
--- NOTE | 2023-01-10 08:58 | Discharge Inst-Simple/Standard ---
Discharge Inst-Standard Discharge Medications New, Converted or Re-Newed RX: Transmitted to Pharmacy Patient Instructions/Follow Up Plan of Care/Instructions/FU: Please continue to take your medications as written. Please follow up with your primary care doctor to follow up this hospital stay. Activity as Tolerated: Yes Discharge Diet: Cardiac Diet Return to The Hospital For: Chest pain, palpitations, shortness of breath, fever, weakness, if you feel you are getting worse. EMANI DOHERTY MD Jan 10, 2023 08:58
[2023-01-10] MEDS ORDERED: APIXABAN 5 MG TABLET PO SCH ×2 (09:00)
--- NOTE | 2023-01-10 09:03 | Short Stay Summary-Hospitalist ---
History of Present Illness HPI/Chief Complaint Patient is 67-year-old female with past medical history of paroxysmal atrial fibrillation during surgery who presented to the emergency department due to heart pounding. She reports that she woke from sleep after having a nightmare and her heart was pounding. At first she thought it was due to the nightmare but this continued so she put her Apple Watch on and her Apple Watch told her that she was in atrial fibrillation with rapid ventricular rate rates into the 60s. She decided to seek evaluation in the emergency department. In the emergency room EKG was obtained which confirmed she is in atrial fibrillation with rapid ventricular rate and was started on a Cardizem drip. She actually converted to sinus rhythm in the emergency department. Was admitted to the ICU for further management and evaluation. She reports feeling much better this morning. Her only concern for me is about her blood thinners because her mom is on Eliquis and she notes that it is quite expensive. Source: patient Date Seen 01/10/23 Time Seen by a Provider: 09:01 Attending Physician Glynn Sullivan DO PCP Admitting Physician: Himanshu Briones MD Attending Physician: Himanshu Briones MD Referring Physician Date of Admission Jan 10, 2023 at 05:52 Home Medications & Allergies Home Medications Reviewed patient Home Medication Reconciliation performed by pharmacy medication reconciliations transport tank technician and/or nursing. Patients Allergies have been reviewed. Allergies Allergies Coded Allergies latex (Verified Allergy, Mild, RASH,BLISTERS, 01/10/23) Past Wqprxpt-Iihqvm-Sozjlp Hx Patient Social History Marrital Status: Employed/Student: employed Tobacco Use?: No Use of E-Cig and/or Vaping dev: No Substance use?: No Alcohol Use?: No Pt feels they are or have been: No Immunizations Up To Date First/Initial COVID19 Vaccinat: COVID VAC X2 Tetanus Booster (TDap): Unknown Seasonal Allergies Seasonal Allergies: Yes Current Status status: No status: No Advance Directives: Yes Advance Directive Location: Home Communicates: Verbally Primary Language: Cook Islander Preferred Spoken Language: Cook Islander Is interpretation needed?: No Sensory deficits: Vision impairment Implanted or Applied Medical D: Orthopedic hardware Past Medical History Surgeries: Gallbladder, Hysterectomy [employer] History: Hysterectomy Sexually Transmitted Disease: No HIV/AIDS: No Gastroesophageal Reflux Arthritis, Chronic Back Pain Loss of Vision: Denies Hearing Impairment: Denies Depression Blood Disorders: No Adverse Reaction/Blood Tranf: No (N/A) Family Medical History No Pertinent Family Hx Review of Systems Constitutional: see HPI Physical Exam Physical Exam Vital Signs Vital Signs - First Documented 01/10/23 03:45 Temp 36.8 Pulse 147 Resp 15 B/P (MAP) 143/113 (123) Pulse Ox 94 O2 Delivery Room Air Capillary Refill : Less Than 3 Seconds Height, Weight, BMI Height: 5'4.00" Weight: 180lbs. 0.0oz. 81.341516cv; 30.14 BMI Method: General Appearance: No Apparent Distress, WD/WN HEENT: PERRL/EOMI, Other (Very dry oral mucosa) Neck: Normal Inspection Respiratory: Lungs Clear, No Accessory Muscle Use, No Respiratory Distress Cardiovascular: Regular Rate, Rhythm, Normal Peripheral Pulses Gastrointestinal: Normal Bowel Sounds, Non Tender, Soft Extremity: Non Tender, No Pedal Edema; No Swelling Neurologic/Psychiatric: Alert, Oriented x3, Normal Mood/Affect Results Results/Procedures Labs Patient resulted labs reviewed. Imaging: Reviewed Imaging Report Imaging [facility] [place] [place] NAME: GERALDO WHITMAN [facility] REC#: [id number] PT STATUS: ADM Velma : 1955 PHYSICIAN: FERDINAND GACRIA MD ADMIT DATE: 01/10/23/ICU Signed Date of Exam:01/10/23 CHEST 1 VIEW, AP/PA ONLY EXAMINATION: Chest 1 view HISTORY: Nausea. Chest palpitations. COMPARISON: 03/07/2021. FINDINGS: The lung volumes are normal. No focal consolidation is seen. No large pleural effusion or pneumothorax is seen. The cardiac silhouette is stable. There is mild prominence of the central pulmonary vasculature. No acute osseous abnormality is seen. IMPRESSION: 1. Mild congestion. Dictated by: Dictated on workstation # [id number] Dict: 01/10/23620 Trans: 01/10/23624 [facility] [id number] Interpreted by: VICTORINA DELUCA DO Electronically signed by: VICTORINA DELUCA DO 01/10/23624 Short Stay Diagnosis Discharge Diagnosis-Short Stay Admission Diagnosis a fib with RVR Final Discharge Diagnosis a fib with RVR Conclusion Plan a fib with RVR converted to sinus rhythm in ER Cardiology consulted Eliquis for stroke ppx will switch to Xarelto due to cost Pharmacy consulted for anticoagulation education Echo with preserved EF Home this afternoon I called and updated her PCP regarding admission and new diagnosis of A fib Clinical Quality Measures AMI/AHF: ASA po Prior to arrival: No Copy Copies To 1: GLYNN SULLIVAN KATELYN M MD Jan 10, 2023 09:02
[2023-01-10] MEDS ORDERED: METO-351 PO (09:36)
[2023-01-10] MEDS ORDERED: MULT-1136 PO (10:51)
[2023-01-10] MEDS ORDERED: MAGN250T31 PO (10:51)
[2023-01-10] MEDS ORDERED: CYCL1DRO OU (10:51)
[2023-01-10] MEDS ORDERED: CHOL500049 PO (10:51)
[2023-01-10] MEDS ORDERED: BUSP10TA95 PO (10:51)
[2023-01-10] MEDS ORDERED: CNC1KV IM (10:51)
[2023-01-10] MEDS ORDERED: NF-ALLE180 PO (10:51)
[2023-01-10] MEDS ORDERED: NAPR220T66 PO (10:51)
[2023-01-10] MEDS ORDERED: PANT40TA52 PO (10:51)
[2023-01-10] MEDS ORDERED: GLUC1TAB21 PO (10:51)
[2023-01-10] MEDS ORDERED: ASPI-1238 PO (10:51)
[2023-01-10] MEDS ORDERED: TRAM50TA3 PO (10:51)
[2023-01-11] MEDS ORDERED: MAGNESIUM 1 GM/100 ML IVPB 100 ML IV SCH (06:00)
[2023-01-11] MEDS ORDERED: POTASSIUM CHLORIDE 20 MEQ TABLET PO SCH (06:00)
[2023-01-11] MEDS ORDERED: POTASSIUM CL 10MEQ/50ML IVPB 50 ML IV SCH (06:00)
== END 2023-01-10 11:51 | disposition home or self-care (01) ==
LOC: EDUNIT# 03:38 → ER 03:39 → ICU 05:52
PROVIDERS: ADMIT Internal Medicine; ATTEND Internal Medicine
DX: I48.91 Unspecified atrial fibrillation (principal); I48.0 Paroxysmal atrial fibrillation; M19.90 Unspecified osteoarthritis, unspecified site; E66.9 Obesity, unspecified; Z68.30 Body mass index [BMI] 30.0-30.9, adult
CPT/HCPCS: 71045; 80048; 83880; 85007; 85027; 87081; 93005; 99284; C8929; G0378; 36415; 93306